=== PATIENT | male | born 1995 | race Caucasian/White ===

== ENCOUNTER 2019-01-23 20:38 | Emergency (ER) | payer MEDICAID ==
[~2019-01-23] VITALS: Ht 170.2 cm; Wt 52.2 kg
[2019-01-23 20:38] VITALS: BP 118/71
[2019-01-23] MEDS: LIDOCAINE 2% 1000 MG/50 ML VIAL INJ ONE (20:59)
[2019-01-23 22:10] VITALS: BP 120/74
== END 2019-01-23 22:10 | disposition home or self-care (01) ==
LOC: MED 20:38
DX: S61.412A Laceration without foreign body of left hand, initial encounter (principal); S00.83XA Contusion of other part of head, initial encounter; F12.10 Cannabis abuse, uncomplicated; R04.0 Epistaxis; X99.1XXA Assault by knife, initial encounter; Y93.89 Activity, other specified; Y92.89 Other specified places as the place of occurrence of the external cause; Y99.8 Other external cause status
CPT/HCPCS: 12002; 90471; 90715; 99283; J2001

== ENCOUNTER 2019-02-05 12:28 | Emergency (ER) | payer MEDICAID ==
[~2019-02-05] VITALS: Ht 170.2 cm; Wt 57.4 kg
[2019-02-05 12:51] VITALS: BP 117/42
--- NOTE | 2019-02-05 13:02 | NUR ---
PT AMBULATES BACK TO THE LOBBY
--- NOTE | 2019-02-05 13:47 | NUR ---
PT PLACED IN BED 8.
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
[2019-02-05] MEDS ORDERED: BACITRACIN OINT 500 UNITS/GM PKT TP ONE (14:18)
[2019-02-05 14:27] VITALS: BP 108/76
--- NOTE | 2019-02-05 14:28 | NUR ---
Patient discharged with v/s stable. Written and verbal after care instructions given and explained. Patient alert, oriented and verbalized understanding of instructions. Ambulatory with steady gait. All questions addressed prior to discharge. ID band removed. Patient advised to follow up with PMD. Rx of BACTRIM, KEFLEX, TYLENOL given. Patient educated on indication of medication including possible reaction and side effects. Opportunity to ask questions provided and answered.
== END 2019-02-05 14:28 | disposition home or self-care (01) ==
LOC: MED 12:28
DX: T81.33XD Disruption of traumatic injury wound repair, subsequent encounter (principal); L03.114 Cellulitis of left upper limb; X58.XXXD Exposure to other specified factors, subsequent encounter
CPT/HCPCS: 99283

== ENCOUNTER 2019-05-11 17:35 | Emergency (ER) | payer MEDICAID ==
[~2019-05-11] VITALS: Ht 167.6 cm; Wt 52.2 kg
[2019-05-11 17:47] VITALS: BP 144/90
--- NOTE | 2019-05-11 17:55 | NUR ---
PT AMBULATORY WITH STEADY GAIT TO BED 1
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
[2019-05-11 19:08] VITALS: BP 144/90
--- NOTE | 2019-05-11 19:08 | NUR ---
PATIENT ELOPED FROM FACILITY. DISCHARGE INSTRUCTIONS NOT GIVEN TO PATIENT. GREG REDD NOTIFIED.
== END 2019-05-11 19:08 | disposition left against medical advice (07) ==
LOC: MED 17:35
DX: F15.10 Other stimulant abuse, uncomplicated (principal)
CPT/HCPCS: 99281

== ENCOUNTER 2021-08-31 21:25 | Emergency (ER) | payer MEDICAID ==
[~2021-08-31] VITALS: Ht 170.2 cm; Wt 68.0 kg
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
--- NOTE | 2021-08-31 21:26 | NUR ---
LATRICE DUPREE, PREBOOK. TAKEN TO CHAIR
[2021-08-31 21:27] VITALS: BP 117/76
--- NOTE | 2021-08-31 22:30 | NUR ---
Dr. Pearson examining patient.
--- NOTE | 2021-08-31 22:59 | NUR ---
PT TAKEN TO RADIOLOGY
[2021-09-01 00:30] VITALS: BP 117/76
--- NOTE | 2021-09-01 00:30 | NUR ---
Patient D/C to Custody.
== END 2021-09-01 00:30 ==
LOC: MED 21:25
DX: M79.672 Pain in left foot (principal); M25.522 Pain in left elbow; Z02.89 Encounter for other administrative examinations; V89.2XXA Person injured in unspecified motor-vehicle accident, traffic, initial encounter; Y93.89 Activity, other specified; Y92.89 Other specified places as the place of occurrence of the external cause; Y99.8 Other external cause status
CPT/HCPCS: 73080; 73610; 73630; 99284

== ENCOUNTER 2024-02-09 01:50 | Emergency (ER) | payer MEDICAID, OTHER ==
[~2024-02-09] VITALS: Ht 172.7 cm; Wt 54.4 kg
[2024-02-09 01:55] VITALS: BP 129/76; PULSE 70; RESP 18; TEMP 97.6; O2SAT 98
[2024-02-09] MEDS: KETOROLAC 30 MG/ML VIAL IM ONE (02:16)
[2024-02-09] MEDS ORDERED: ACET500T99 PO (02:49)
[2024-02-09] MEDS ORDERED: IBUP-2213 PO (02:49)
[2024-02-09] MEDS ORDERED: MORPHINE SULFATE 4 MG/ML SYR ONE (03:27)
[2024-02-09] MEDS ORDERED: ONDANSETRON 4 MG/2 ML VIAL ONE (03:27)
== END 2024-02-09 03:10 | disposition home or self-care (01) ==
LOC: MED 01:50
DX: S50.01XA Contusion of right elbow, initial encounter (principal); Z79.899 Other long term (current) drug therapy; W11.XXXA Fall on and from ladder, initial encounter; Y93.89 Activity, other specified; Y92.89 Other specified places as the place of occurrence of the external cause; Y99.8 Other external cause status
CPT/HCPCS: 73080; 96372; 99283; J1885; Q0092; J2270; J2405